=== PATIENT | female | born 1965 | race Caucasian/White ===

== ENCOUNTER → 2021-05-11 | Day surgery (SDC) | payer OTHER ==
[~2021-05-11] MED LIST: LEVO150T PO; LIOT5TAB11 PO; MELOXICAM
[2021-05-11 10:17] VITALS: BP 112/76
== END | disposition home or self-care (01) ==
LOC: SURG 10:07
PROVIDERS: ATTEND Anesthesiology
DX: M54.16 Radiculopathy, lumbar region (principal); M51.36 Other intervertebral disc degeneration, lumbar region; G89.29 Other chronic pain; M47.816 Spondylosis without myelopathy or radiculopathy, lumbar region; F17.210 Nicotine dependence, cigarettes, uncomplicated; Z98.890 Other specified postprocedural states; Z79.899 Other long term (current) drug therapy
CPT/HCPCS: 99204; G0463